=== PATIENT | male | born 1975 | race American Indian/Alaskan Native ===

== ENCOUNTER 2020-01-18 09:15 | Emergency (ER) | payer MEDICARE ==
[2020-01-18 09:22] VITALS: BP 151/79
--- NOTE | 2020-01-18 10:34 | Emergency Department Report ---
ED General Adult HPI - General Chief complaint: Weakness Stated complaint: CHILLS Time Seen by Provider: 01/18/20 10:29 Source: patient Mode of arrival: Ambulatory Limitations: No Limitations - History of Present Illness Initial comments: 44-year-old male with past medical history of lymphedema presents emergency department complaining of having chills when he woke up early this morning but symptom spontaneously resolve when he found EMS and arrived to his house however he decided to come to the emergency department. He reports no chest pain, no pa lpitation, no nausea, no vomiting, no fever, no sweats, no hemoptysis no hematemesis no hematochezia, no foreign travel point no contact with any COVID positive patients. No abdominal pain no dysuria, no rashes, no abscesses no body pain Improves with: none Worsens with: none Associated Symptoms: denies other symptoms. denies: diaphoresis, loss of appetite, malaise (Symptoms resolved), rash, seizure, shortness of breath, syncope, weakness Treatments Prior to Arrival: none - Related Data Allergies Allergy/AdvReac Type Severity Reaction Status Date / Time No Known Allergies Allergy Verified 01/18/20 09:18 ED Review of Systems ROS: Stated complaint: CHILLS Other details as noted in HPI Comment: All other systems reviewed and negative ED Past Medical Hx - Past Medical History Hx Hypertension: Yes Hx Congestive Heart Failure: Yes Hx Diabetes: Yes - Surgical History Past Surgical History?: No - Social History Smoking Status: Never Smoker Substance Use Type: None ED Physical Exam - General Limitations: No Limitations General appearance: alert, in no apparent distress - Head Head exam: Present: atraumatic, normocephalic - Eye Eye exam: Present: normal appearance, PERRL, EOMI Pupils: Present: normal accommodation - ENT ENT exam: Present: normal exam, normal orophraynx, mucous membranes moist, TM's normal bilaterally - Neck Neck exam: Present: normal inspection, full ROM. Absent: tenderness, meningismus, lymphadenopathy - Respiratory Respiratory exam: Present: normal lung sounds bilaterally. Absent: respiratory distress, wheezes, rales, chest wall tenderness - Cardiovascular Cardiovascular Exam: Present: regular rate, normal rhythm. Absent: systolic murmur, diastolic murmur, rubs, gallop - GI/Abdominal GI/Abdominal exam: Present: soft, normal bowel sounds. Absent: distended, tenderness, hyperactive bowel sounds, hypoactive bowel sounds, pulsatile mass - Rectal Rectal exam: Present: deferred - Extremities Exam Extremities exam: Present: normal inspection, full ROM, normal capillary refill, other (Bilateral lymph edema is noted. Tinea pedis is also noted. No cellulit is no abscesses visualized) - Back Exam Back exam: Present: normal inspection. Absent: CVA tenderness (R), CVA tenderness (L) - Neurological Exam Neurological exam: Present: alert, oriented X3, CN II-XII intact, normal gait - Psychiatric Psychiatric exam: Present: normal affect, normal mood - Skin Skin exam: Present: warm, dry, intact, normal color. Absent: rash ED Course Vital Signs 01/18/20 09:18 Temperature 98.2 F Pulse Rate 114 H Respiratory 16 Rate Blood Pressure 151/79 O2 Sat by Pulse 98 Oximetry ED Medical Decision Making - Medical Decision Making 44-year-old male with history of lymphedema presents emergency department complaining of having chills which have resolved prior to his arrival to e mergency department and has no residual symptoms. Currently is asymptomatic and is feared complaint is unfounded. Will screen the patient advised him to return to emergency department should his symptoms worsen or he feel his condition is worsening. Critical care attestation.: If time is entered above; I have spent that time in minutes in the direct care of this critically ill patient, excluding procedure time. ED Disposition Clinical Impression: Chills (without fever) Disposition: Z- MED SCREENING EXAM-LEFT Is pt being admited?: No Does the pt Need Aspirin: No Condition: Stable Instructions: Weakness (ED) Referrals: PRIMARY CARE, [Primary Care Provider] - 3-5 Days
== END 2020-01-18 10:51 | disposition left against medical advice (07) ==
LOC: ED 09:15
DX: R68.83 Chills (without fever) (principal); I11.0 Hypertensive heart disease with heart failure; I50.9 Heart failure, unspecified; E11.9 Type 2 diabetes mellitus without complications
CPT/HCPCS: 93005; 93010; 99282

== ENCOUNTER 2020-10-09 06:00 | Emergency (ER) | payer MEDICARE | END 2020-10-09 06:40 | disposition left against medical advice (07) | LOC: ED 06:00 | DX: F41.9 Anxiety disorder, unspecified (principal); Z53.21 Procedure and treatment not carried out due to patient leaving prior to being seen by health care provider ==

== ENCOUNTER 2021-12-25 08:38 | Emergency (ER) | payer MEDICARE ==
[2021-12-25 09:03] VITALS: BP 136/66
--- NOTE | 2021-12-25 09:35 | Emergency Department Report ---
ED General Adult HPI - General Chief complaint: Pain General Stated complaint: BURNING SMELL IN NOSE Time Seen by Provider: 12/25/21 08:58 Source: patient Mode of arrival: Ambulatory Limitations: No Limitations - History of Present Illness Initial comments: 46-year-old -[place] male patient presents with complaints of abnormal sense of smell x4 days. Patient states 4 days ago, his turned on a space heater and sprayed some air freshener. He states he immediately smelled something burning in the burning smell has continued since. He denies any nasal pain, congestion, nasal drainage, numbness/tingling/weakness in his limbs, vision changes, confusion, memory loss, dizziness, or difficulty with speech/ambulation. Patient states he is otherwise feeling well. He has had his COVID-19 vaccination. Severity scale (0 -10): 0 - Related Data Allergies Allergy/AdvReac Type Severity Reaction Status Date / Time No Known Allergies Allergy Verified 01/18/20 09:18 ED Review of Systems ROS: Stated complaint: BURNING SMELL IN NOSE Other details as noted in HPI Constitutional: denies: chills, fever, malaise, weakness ENT: denies: ear pain, throat pain, congestion Respiratory: denies: cough Neurological: denies: headache, weakness, numbness, paresthesias, confusion, abnormal gait Hematological/Lymphatic: denies: swollen glands ED Past Medical Hx - Past Medical History Hx Hypertension: Yes Hx Congestive Heart Failure: Yes Hx Diabetes: Yes - Surgical History Past Surgical History?: Yes Additional Surgical History: chest tube Jan 2000 - Social History Smoking Status: Never Smoker Substance Use Type: None ED Physical Exam - General Limitations: No Limitations General appearance: alert, in no apparent distress, obese (Morbid) - Head Head exam: Present: atraumatic, normocephalic - Eye Eye exam: Present: normal appearance, PERRL. Absent: scleral icterus - ENT ENT exam: Present: other (Nasal mucosa is without erythema drainage, or lesions; no tenderness to palpation of the external nose noted) - Neck Neck exam: Present: normal inspection - Respiratory Respiratory exam: Absent: respiratory distress - Neurological Exam Neurological exam: Present: alert, oriented X3 - Psychiatric Psychiatric exam: Present: normal affect, normal mood - Skin Skin exam: Present: warm, dry, intact, normal color. Absent: rash ED Course Vital Signs 12/25/21 12/25/21 09:01 09:03 Temperature 98.7 F 98.6 F Pulse Rate 100 H 100 H Respiratory 18 18 Rate Blood Pressure 136/66 Blood Pressure 136/66 [Right] O2 Sat by Pulse 96 96 Oximetry ED Medical Decision Making - Medical Decision Making 46-year-old -[place] male patient presents with complaints of abnormal sense of smell x4 days. Patient states 4 days ago, his turned on a space heater and sprayed some air freshener. He states he immediately smelled something burning in the burning smell has continued since. He denies any nasal pain, congestion, nasal drainage, numbness/tingling/weakness in his limbs, vision changes, confusion, memory loss, dizziness, or difficulty with speech/ambulation. Patient states he is otherwise feeling well. He has had his COVID-19 vaccination. No abnormalities noted on exam. Recommend nasal saline flushes 4 times a day for 3 to 4 days and follow-up with ENT as needed. Discussed in detail signs and symptoms that should prompt immediate return to the ED with patient who verbalized understanding. Patient is well-appearing and stable for discharge home Critical care attestation.: If time is entered above; I have spent that time in minutes in the direct care of this critically ill patient, excluding procedure time. ED Disposition Clinical Impression: Abnormal smell Disposition: 01 HOME / SELF CARE / HOMELESS Is pt being admited?: No Condition: Stable Referrals: PRIMARY CARE, [Referring] - 3-5 Days ANTONIO LEWIS MD [Staff Physician] - as needed
== END 2021-12-25 10:16 | disposition home or self-care (01) ==
LOC: ED 08:38
DX: R43.9 Unspecified disturbances of smell and taste (principal); I11.0 Hypertensive heart disease with heart failure; I50.9 Heart failure, unspecified; Z98.890 Other specified postprocedural states
CPT/HCPCS: 99282